=== PATIENT | male | born 1935 | race Caucasian/White ===

== ENCOUNTER 2017-08-30 16:38 | Emergency (ER) | payer MEDICARE, OTHER ==
[~2017-08-30] VITALS: Ht 162.6 cm; Wt 72.6 kg
[~2017-08-30 16:38] MED LIST: ALLOPURINOL100 MG; ASPIR 8181 MG PO; DEPO-TESTO100 MG/1 M IM; HYDROCHLOROTHIA25 MG PO; LEVOXYL50 MCG PO; MAGNESIUM OXID400 MG PO; METFORMIN HCL500 MG; MINIPRESS1 MG PO; MULTIVITAMIN FOR MEN; PRESERVISION A1 EACH PO; SIMVASTATIN20 MG PO; SUPER B COMPLE150 MG PO; TESTOSTERO100 MG/1 M IM; VITAMIN C500 M1 PO
[2017-08-30] MEDS ORDERED: PERCOCET 5-3251 EACH PO (17:17)
== END 2017-08-30 18:15 | disposition home or self-care (01) ==
LOC: ED 16:38
DX: R60.0 Localized edema (principal); I10 Essential (primary) hypertension; E78.5 Hyperlipidemia, unspecified; E11.9 Type 2 diabetes mellitus without complications; E03.9 Hypothyroidism, unspecified; Z88.8 Allergy status to other drugs, medicaments and biological substances; Z79.899 Other long term (current) drug therapy; Z79.84 Long term (current) use of oral hypoglycemic drugs
CPT/HCPCS: 93971; 99284

== ENCOUNTER 2022-12-16 21:49 | Emergency (ER) | payer MEDICARE, OTHER ==
[~2022-12-16] VITALS: Ht 162.6 cm; Wt 68.0 kg
[~2022-12-16 21:49] MED LIST changes: +PERCOCET 5-3251 EACH PO
[2022-12-16] MEDS ORDERED: LISINOPRIL10 MG PO (22:02)
[2022-12-16] MEDS ORDERED: LORAZEPAM0.5 MG PO (22:03)
--- NOTE | 2022-12-17 12:32 | EKG ---
[facility] [address] [place] [address] Signed Sinus tachycardia Otherwise normal ECG No previous ECGs available Confirmed by Heather Salvador MD () on 12/17/2022 12:32:25 PM Electronically Signed By: HEATHER SALVADOR MD 12/17/22 1232 PATIENT NAME: ROLANDO AGUILA RAHEEM Electrocardiogram DATE OF : 33 PHYSICIAN: HEATHER SALVADOR MD REPORT #: [id number] REPORT IS CONFIDENTIAL AND NOT TO BE RELEASED WITHOUT AUTHORIZATION
== END 2022-12-16 23:04 | disposition home or self-care (01) ==
LOC: ED 21:49
DX: B34.9 Viral infection, unspecified (principal); I10 Essential (primary) hypertension; E11.9 Type 2 diabetes mellitus without complications; M10.9 Gout, unspecified; E78.5 Hyperlipidemia, unspecified; E03.9 Hypothyroidism, unspecified; Z88.8 Allergy status to other drugs, medicaments and biological substances; Z79.899 Other long term (current) drug therapy; Z20.822 Contact with and (suspected) exposure to COVID-19
CPT/HCPCS: 36415; 71045; 80053; 83605; 85025; 85610; 85730; 87502; 93005; 93010; 99284-25; A9270; J7121; U0003